=== PATIENT | male | born 1930 | race Caucasian/White ===

== ENCOUNTER 2017-05-22 10:34 | Inpatient (IN) | payer OTHER, MEDICARE ==
[~2017-05-22] VITALS: Ht 167.6 cm; Wt 75.4 kg
[~2017-05-22 10:34] MED LIST: ADVAIR HFA120 INHALA IH; AMOX TR-K CLV1 EAC4 PO; ANORO ELLIPTA1 EACH IH; ASPIRIN E.C.81 M1 PO; CARDIZEM CD,CA180 MG PO; CARDIZEM CD,CA240 MG PO; CEFTIN500 MG PO; DEBROX15 ML BOTH EARS; ECONAZOLE NITRA15 GM TP; ELIQUIS5 MG PO; Glucosamine/Chondroi PO; LAMISIL250 MG PO; LASIX20 MG PO; LO-DOSE ASPIRIN81 M2 PO; MARTINIC1 EACH PO; NORVASC5 MG PO; OCEAN NASAL 0.645 ML BOTH NARES; OMEGA FISH OIL PO; PREDNISONE10 MG PO; PREDNISONE20 MG PO; PRILOSEC20 MG PO; PROAIR HFA8.5 GM IH; PROSCAR5 MG PO; PROTONIX40 MG PO; SPIRIVA1 INHALATI IH; ULTRAM50 MG PO; VITAMIN D2000 INTUN PO; VITAMIN D32000 UNI1 PO; Vitamin B Complex PO; Zestoretic,Prinzide PO
[2017-05-22 12:17] LABS: INTER. NORMALIZED RATIO 1.5; PROTHROMBIN TIME 16.5 SEC (10.2-12.9)
[2017-05-22 12:20] LABS: PTT 32.8 SEC (25-37)
[2017-05-22 12:23] LABS: CHLORIDE 105 mEq/L (99-109); POTASSIUM 4.4 mEq/L (3.7-5.4); SODIUM 141 mEq/L (136-147)
[2017-05-22 12:24] LABS: GLUCOSE 100 mg/dL (70-99)
[2017-05-22 12:26] LABS: EOSINOPHIL (%) 0.4 % (0-5); EOSINOPHIL COUNT 0.1 K/uL (0-0.3); HEMATOCRIT 32.9 % (38.0-50.0); IMMATURE GRANULOCYTE (%) 0.6 % (0.0-0.7); IMMATURE GRANULOCYTE COUNT 0.1 K/uL; INSTRUMENT ABS NEUTROPHIL CT 9.8 K/uL; LYMPHOCYTE COUNT 0.9 K/uL (1.0-2.8); MCH 19.2 PG (29.0-34.0); MCHC 27.1 G/DL (30.0-36.0); MCV 70.9 FL (86-99); MEAN PLAT.VOLUME 8.5 uM^3 (9.0-12.4); MONOCYTE (%) 7.7 % (3-12); MONOCYTE COUNT 0.9 K/uL (0-0.8); NEUTROPHIL (%) 83.4 % (45-76); NEUTROPHIL COUNT 9.8 K/uL (1.8-6.4); PLATELET COUNT 383 K/uL (156-360); RBC DIS.WIDTH-SD 45.3 % (39-53); RED BLOOD COUNT 4.64 M/uL (4.00-5.50); WHITE BLOOD COUNT 11.8 K/uL (4.1-10.2)
[2017-05-22 12:26] LABS: ANION GAP 10 MEQ/L (2-14)
[2017-05-22 12:28] LABS: GFR ESTIMATE (CALCULATED) > 59 mL/min/
[2017-05-22 12:29] LABS: UREA NITROGEN (BUN) 20 mg/dL (9-23)
[2017-05-22 12:33] LABS: TROP-I INTERPRETATION NEGATIVE; TROPONIN-I < 0.01 ng/mL (0.0-0.30)
[2017-05-22] MEDS ORDERED: DILTIAZEM ER360 M1 PO (14:31)
[2017-05-22] MEDS ORDERED: LASIX20 MG PO (14:32)
[2017-05-22] MEDS ORDERED: NORVASC5 MG PO (14:32)
[2017-05-22 14:41] LABS: IRON 17 MCG/DL (35-150); SAMPLE HEMOLYSIS CHECK 0; SAMPLE ICTERIC CHECK 0; SAMPLE LIPEMIA CHECK 1
[2017-05-22 17:48] VITALS: BP 118/66
[2017-05-22 19:58] LABS: TROP-I INTERPRETATION NEGATIVE; TROPONIN-I 0.02 ng/mL (0.0-0.30)
[2017-05-23] VITALS (7 sets, daily range): BP systolic 108–128; BP diastolic 57–72
[2017-05-23 06:25] LABS: HEMATOCRIT 27.8 % (38.0-50.0); MCH 19.3 PG (29.0-34.0); MCHC 27.3 G/DL (30.0-36.0); MCV 70.7 FL (86-99); MEAN PLAT.VOLUME 8.4 uM^3 (9.0-12.4); NRBC (%) 0.2 /100 WBC (0-0); PLATELET COUNT 317 K/uL (156-360); RBC DIS.WIDTH-CV 17.8 % (11.8-14.6); RBC DIS.WIDTH-SD 45.2 % (39-53); RED BLOOD COUNT 3.93 M/uL (4.00-5.50)
[2017-05-23 06:50] LABS: TROP-I INTERPRETATION NEGATIVE; TROPONIN-I 0.01 ng/mL (0.0-0.30)
[2017-05-23 06:53] LABS: ANION GAP 7 MEQ/L (2-14); CHLORIDE 104 MEQ/L (99-109); GFR ESTIMATE (CALCULATED) > 59 mL/min/; POTASSIUM 4.4 MEQ/L (3.7-5.4); SAMPLE HEMOLYSIS CHECK 0; SAMPLE ICTERIC CHECK 0; SAMPLE LIPEMIA CHECK 0; SODIUM 139 MEQ/L (136-147); UREA NITROGEN (BUN) 22 mg/dL (9-23)
[2017-05-23 07:02] LABS: GLUCOSE 172 mg/dL (70-99)
[2017-05-24 04:38] VITALS: BP 98/55
[2017-05-24 06:19] LABS: EOSINOPHIL (%) 0 % (0-5); HEMATOCRIT 28.9 % (38.0-50.0); IMMATURE GRANULOCYTE (%) 0.9 % (0.0-0.7); IMMATURE GRANULOCYTE COUNT 0.2 K/uL; INSTRUMENT ABS NEUTROPHIL CT 15.8 K/uL; LYMPHOCYTE COUNT 0.4 K/uL (1.0-2.8); MCH 19.6 PG (29.0-34.0); MCHC 27.7 G/DL (30.0-36.0); MCV 70.8 FL (86-99); MEAN PLAT.VOLUME 8.8 uM^3 (9.0-12.4); MONOCYTE (%) 2.6 % (3-12); MONOCYTE COUNT 0.4 K/uL (0-0.8); NEUTROPHIL (%) 93.8 % (45-76); NEUTROPHIL COUNT 15.8 K/uL (1.8-6.4); NRBC (%) 0.1 /100 WBC (0-0); PLATELET COUNT 367 K/uL (156-360); RBC DIS.WIDTH-CV 17.9 % (11.8-14.6); RBC DIS.WIDTH-SD 45.1 % (39-53); RED BLOOD COUNT 4.08 M/uL (4.00-5.50); WHITE BLOOD COUNT 16.8 K/uL (4.1-10.2)
[2017-05-24 06:37] LABS: ANION GAP 7 MEQ/L (2-14); CHLORIDE 104 MEQ/L (99-109); GFR ESTIMATE (CALCULATED) > 59 mL/min/; GLUCOSE 147 mg/dL (70-99); POTASSIUM 4.5 MEQ/L (3.7-5.4); SAMPLE HEMOLYSIS CHECK 0; SAMPLE ICTERIC CHECK 0; SAMPLE LIPEMIA CHECK 0; SODIUM 141 MEQ/L (136-147); UREA NITROGEN (BUN) 29 mg/dL (9-23)
[2017-05-24 07:43] VITALS: BP 124/59
[2017-05-24 10:21] VITALS: BP 115/95
[2017-05-24 15:48] VITALS: BP 113/57
[2017-05-24 19:22] VITALS: BP 130/64
[2017-05-24 22:34] VITALS: BP 111/56
[2017-05-25 03:00] VITALS: BP 102/60
[2017-05-25 06:39] LABS: EOSINOPHIL (%) 0 % (0-5); HEMATOCRIT 29.6 % (38.0-50.0); IMMATURE GRANULOCYTE (%) 1.3 % (0.0-0.7); IMMATURE GRANULOCYTE COUNT 0.2 K/uL; LYMPHOCYTE COUNT 0.5 K/uL (1.0-2.8); MCH 19.9 PG (29.0-34.0); MCV 70.8 FL (86-99); MEAN PLAT.VOLUME 8.8 uM^3 (9.0-12.4); MONOCYTE (%) 2.6 % (3-12); MONOCYTE COUNT 0.4 K/uL (0-0.8); NEUTROPHIL (%) 93.4 % (45-76); NRBC (%) 0.2 /100 WBC (0-0); PLATELET COUNT 394 K/uL (156-360); RBC DIS.WIDTH-CV 18.1 % (11.8-14.6); RED BLOOD COUNT 4.18 M/uL (4.00-5.50); WHITE BLOOD COUNT 17.1 K/uL (4.1-10.2)
[2017-05-25 06:56] LABS: ANION GAP 8 MEQ/L (2-14); CHLORIDE 104 MEQ/L (99-109); GFR ESTIMATE (CALCULATED) > 59 mL/min/; GLUCOSE 145 mg/dL (70-99); POTASSIUM 4.3 MEQ/L (3.7-5.4); SAMPLE HEMOLYSIS CHECK 0; SAMPLE ICTERIC CHECK 0; SAMPLE LIPEMIA CHECK 0; SODIUM 140 MEQ/L (136-147); UREA NITROGEN (BUN) 40 mg/dL (9-23)
[2017-05-25 07:45] VITALS: BP 126/60
[2017-05-25 12:35] VITALS: BP 120/58
[2017-05-25 17:13] VITALS: BP 137/63
[2017-05-25 19:29] VITALS: BP 140/72
[2017-05-26] VITALS (9 sets, daily range): BP systolic 109–145; BP diastolic 55–72
[2017-05-26 07:02] LABS: EOSINOPHIL (%) 0 % (0-5); HEMATOCRIT 32.4 % (38.0-50.0); IMMATURE GRANULOCYTE (%) 1.6 % (0.0-0.7); IMMATURE GRANULOCYTE COUNT 0.2 K/uL; INSTRUMENT ABS NEUTROPHIL CT 12.7 K/uL; LYMPHOCYTE COUNT 0.6 K/uL (1.0-2.8); MCHC 27.2 G/DL (30.0-36.0); MCV 70.1 FL (86-99); MEAN PLAT.VOLUME 8.4 uM^3 (9.0-12.4); MONOCYTE (%) 3.2 % (3-12); MONOCYTE COUNT 0.5 K/uL (0-0.8); NEUTROPHIL (%) 90.7 % (45-76); NEUTROPHIL COUNT 12.7 K/uL (1.8-6.4); NRBC (%) 0.3 /100 WBC (0-0); PLATELET COUNT 429 K/uL (156-360); RBC DIS.WIDTH-CV 17.8 % (11.8-14.6); RBC DIS.WIDTH-SD 44.5 % (39-53); RED BLOOD COUNT 4.62 M/uL (4.00-5.50)
[2017-05-26 07:04] LABS: ANION GAP 13 MEQ/L (2-14); CHLORIDE 102 MEQ/L (99-109); GFR ESTIMATE (CALCULATED) > 59 mL/min/; GLUCOSE 153 mg/dL (70-99); POTASSIUM 4.3 MEQ/L (3.7-5.4); SAMPLE HEMOLYSIS CHECK 0; SAMPLE ICTERIC CHECK 0; SAMPLE LIPEMIA CHECK 0; SODIUM 139 MEQ/L (136-147); UREA NITROGEN (BUN) 28 mg/dL (9-23)
[2017-05-27 02:25] VITALS: BP 120/73
[2017-05-27 06:19] LABS: EOSINOPHIL (%) 0 % (0-5); IMMATURE GRANULOCYTE COUNT 0.2 K/uL; LYMPHOCYTE COUNT 0.4 K/uL (1.0-2.8); MCH 19.7 PG (29.0-34.0); MCHC 28.4 G/DL (30.0-36.0); MCV 69.4 FL (86-99); MEAN PLAT.VOLUME 8.4 uM^3 (9.0-12.4); MONOCYTE (%) 5.3 % (3-12); MONOCYTE COUNT 0.6 K/uL (0-0.8); NEUTROPHIL (%) 89.5 % (45-76); NRBC (%) 0.4 /100 WBC (0-0); PLATELET COUNT 416 K/uL (156-360); RBC DIS.WIDTH-CV 17.7 % (11.8-14.6); RBC DIS.WIDTH-SD 43.8 % (39-53); RED BLOOD COUNT 4.47 M/uL (4.00-5.50); WHITE BLOOD COUNT 11.2 K/uL (4.1-10.2)
[2017-05-27 06:29] LABS: ANION GAP 8 MEQ/L (2-14); CHLORIDE 101 MEQ/L (99-109); GFR ESTIMATE (CALCULATED) > 59 mL/min/; GLUCOSE 157 mg/dL (70-99); POTASSIUM 3.8 MEQ/L (3.7-5.4); SAMPLE HEMOLYSIS CHECK 0; SAMPLE ICTERIC CHECK 0; SAMPLE LIPEMIA CHECK 0; SODIUM 139 MEQ/L (136-147); UREA NITROGEN (BUN) 26 mg/dL (9-23)
[2017-05-27 07:12] VITALS: BP 122/68
[2017-05-27 08:39] LABS: POC NON-PRINT COM 1 ND
[2017-05-27 11:00] VITALS: BP 126/72
[2017-05-27] MEDS ORDERED: PREDNISOLONE SO10 MG PO (12:18)
[2017-05-27] MEDS ORDERED: FERROUS SULFAT325 MG PO (12:18)
[2017-05-27] MEDS ORDERED: AUGMENTIN875 MG PO (12:18)
[2017-05-27] MEDS ORDERED: VITAMIN D2000 UNI1 PO (12:18)
[2017-05-27] MEDS ORDERED: PANTOPRAZOLE SO40 MG PO (12:18)
[2017-05-27 15:20] VITALS: BP 124/71
== END 2017-05-27 20:12 | disposition home or self-care (01) | DRG 191 ==
LOC: EME 10:34 → 5EAST 13:23 → EDOF 13:23 → ENRESERV 13:25 → 5EAST 15:49 → ENPENDDIS 05-27 → 5EAST 05-27 20:12
PROVIDERS: Emergency Medicine; Family Medicine
DX: J44.1 Chronic obstructive pulmonary disease with (acute) exacerbation (principal); C15.5 Malignant neoplasm of lower third of esophagus; B37.89 Other sites of candidiasis; J98.11 Atelectasis; I42.9 Cardiomyopathy, unspecified; I27.2 Other secondary pulmonary hypertension; D12.5 Benign neoplasm of sigmoid colon; L83 Acanthosis nigricans; I48.2 Chronic atrial fibrillation; K55.20 Angiodysplasia of colon without hemorrhage; K21.9 Gastro-esophageal reflux disease without esophagitis; K64.8 Other hemorrhoids; J20.9 Acute bronchitis, unspecified; D50.9 Iron deficiency anemia, unspecified; I10 Essential (primary) hypertension; K57.30 Diverticulosis of large intestine without perforation or abscess without bleeding; M19.90 Unspecified osteoarthritis, unspecified site; R09.02 Hypoxemia; Z99.81 Dependence on supplemental oxygen; Z90.49 Acquired absence of other specified parts of digestive tract; Z87.891 Personal history of nicotine dependence; Z79.01 Long term (current) use of anticoagulants; Z85.51 Personal history of malignant neoplasm of bladder; Z80.0 Family history of malignant neoplasm of digestive organs; Z79.52 Long term (current) use of systemic steroids
CPT/HCPCS: 71010; 80048; 82272; 83540; 83880; 84466; 84484; 85025; 85027; 85610; 85730; 87040; 88108; 88312; 93005; 94640; 94640 76; 94760; 94799; 99202; 99281; 99285; J0696; J2920; J2930; J7050